=== PATIENT | female | born 1985 | race Caucasian/White ===

== ENCOUNTER 2022-10-15 11:21 | Outpatient (CLI) | payer BC, OTHER, SELFPAY ==
--- NOTE | 2022-10-15 11:30 | ECG_ITS ---
Measurements Intervals [place] Rate: 78 P: 44 VT: 168 QRS: 17 QRSD: 87 T: -8 QT: 390 QTc: 444 Interpretive Statements SINUS RHYTHM INCOMPLETE RIGHT BUNDLE BRANCH BLOCK NONSPECIFIC ST AND T-WAVE ABNORMALITY NO PREVIOUS ECG AVAILABLE FOR COMPARISON Electronically Signed On 10-15-2022 15:57:44 CDT by Varinder Donaldson M.D.
[2022-10-15 11:57] LABS: Hematocrit 36.9 % (37.0-47.0); Hemoglobin 12.8 g/dL (12.0-15.0); Mean Corpuscular HGB Conc 34.7 g/dl (32-36); Mean Corpuscular Hemoglobin 28.5 pg (26-34); Mean Corpuscular Volume 82.2 fl (80-100); Mean Platelet Volume 9.3 fl (7.4-10.4); Platelet Count Result 405 k/mm3 (150-375); Red Blood Count 4.49 M/mm3 (4.2-5.4); Red Cell Distribution Width 12.2 % (11.5-14.5); White Blood Count 16.8 K/mm3 (4.5-10.0)
[2022-10-15 12:09] LABS: Prothrombin Time 12.6 Seconds (11.1-14.7)
[2022-10-15 12:10] LABS: Partial Thromboplastin Time 23.7 SECONDS (22.3-36.8)
== END 2022-10-15 11:22 | disposition home or self-care (01) ==
LOC: ANHSURGERY 11:25
PROVIDERS: Anesthesiology; PCP Family Medicine Sports Medicine; Visit Provider Obstetrics & Gynecology
DX: N81.4 Uterovaginal prolapse, unspecified (principal); I10 Essential (primary) hypertension; D68.00 Von Willebrand disease, unspecified
CPT/HCPCS: 36415; 85027; 85610; 85730; 86850; 86900; 86901; 93005

== ENCOUNTER 2022-10-16 00:11 | Day surgery (SDC) | payer BC, OTHER, SELFPAY ==
[2022-10-08 13:09] VITALS: BMI 32.5
--- NOTE | 2022-10-08 13:17 | PC.NURSE ---
Report to the Outpatient Waiting Room, entrance under the green pavilion located off [facility], at time 7:30 on date 10/16/22. Planned Procedure Time: 9:30. Time changes happen often and if your time is changed the preop area will call you the afternoon before. - You and your visitor will be asked to self-screen and do not enter if you have any COVID symptoms. - A mask is optional within the hospital at this time. Patients may have clear liquids (water, carbonated beverages, clear teas, apple juice) until 3 hours prior to surgery (6:30) with a maximum of 20 ounces. - No food from midnight until time of surgery Take the following medications with a SIP of water the morning of surgery: NONE DO NOT STOP ANY OF YOUR OTHER PRESCRIPTION MEDICATIONS PRIOR TO SURGERY EXCEPT THE FOLLOWING Medications to discontinue per physician: N/A Date to take last dose: N/A Please no make-up, nail haitian, hairspray, perfume, deodorant, or body powder the day of surgery. No jewelry (including any body piercings) or valuables the day of surgery, leave them at home. Please take a shower or bath the night before, or the morning of, surgery with an antibacterial soap. Wear comfortable, loose fitting clothing. - Jewelry must be removed prior to entering the operating room. Rings and piercings that are not removed may be cut off. - The hospital will not accept responsibility for valuables. - Please leave all valuables, including medications, at home the day of surgery. If you are going home after surgery, a licensed bus van driver must drive you home. - NO public transportation without another adult if you receive anesthesia. - We recommend that an adult stay with you for 24 hours following discharge. - We also recommend that you do not drive, make important decision, drink alcoholic beverages, or take any drugs that were not prescribed by your health care provider for at least 24 hours after your discharge time. Follow any additional instructions given to you from your surgeon. If you or anyone in your household have experienced Covid symptoms in the past week, please notify your surgeon or the nurse liaison at the phone number below for possible testing. Telephone instructions given to PT - STACI JJ and asked if any additional questions and then verbalized understanding. Patient advised to call surgeon office or pre surgery nurse liaison [phone] if any additional questions.
--- NOTE | 2022-10-15 09:11 | WPDANESEPPF ---
Anes - Initial Pre Proc Eval Procedure: Operation Date: 10/16/22 09:30 Proposed Procedures p Robotic Assisted Total Laparoscopic Hysterectomy with Bilateral Salpingectomy - Isaak Carbone MD Date/Time: 10/15/22 09:11 Surgeon: Isaak Carbone MD Pre Op Diagnosis: Uterine Prolapse Patient Data Age: 36 Gender: F Height: 1.63 m Weight: 86.2 kg Allergies Allergy/AdvReac Type Severity Reaction Status Date / Time latex Allergy Intermediate Hives Verified 10/16/22 08:22 nitrofurantoin Allergy Intermediate Hives Verified 10/16/22 08:22 [From Macrobid] povidone-iodine Allergy Intermediate Hives Verified 10/16/22 08:22 [From Betadine] adhesive Allergy Mild Hives Verified 10/16/22 08:22 aspirin Allergy Mild HAVE A Verified 10/16/22 08:22 BLEEDING DISORDER, UNABLE TO TAKE ibuprofen Allergy Mild HAVE A Verified 10/16/22 08:22 BLEEDING DISORDER, UNABLE TO TAKE morphine Allergy Mild HIVES Verified 10/16/22 08:22 soap [From Betadine] Allergy Hives Verified 10/16/22 08:22 Home Medications Medication Instructions Recorded Confirmed Type drospirenone 3 mg-ethinyl 1 tablet PO HS 10/08/22 10/08/22 History estradiol 0.02 mg tablet (JESSICA (28)) losartan 50 mg tablet 50 mg PO DAILY 10/08/22 10/08/22 History Patient hx anesthesia problems: post op nausea/vomiting Family hx anesthesia problems: none Results Review: All pre-operative results and documents have been reviewed as part of the pre-operative evaluation. [facility] Past Medical History Medical History Abnormal Pap smear of cervix 09/17/2018 + hpv 08/05/2016 lgsil+hpv 07/02/2015 LGSIL +HPV 09/02/2011 LGSIL 02/27/2011 ASCUS HPV negative 08/21/2010 LGSIL 01/31/2010 LGSIL 06/11/2009 LGSIL Anxiety Asthma Depression Ectopic 03/02/2017 lt fallopian tube removed Encounter for IUD insertion 11/23/19 Mirena insertion 02/19/21 Mirena removal Fibromyalgia possible Hypertension Pneumonia PONV (postoperative nausea and vomiting) SVT (supraventricular tachycardia) Von Willebrand disease Surgical History Surgical History H/O cardiac radiofrequency ablation H/O LEEP 10/09/16 HGSIL persistent LGSIL AYDEE II--IUD removal at same time History of cholecystectomy 03/10/18 History of colposcopy with cervical biopsy 09/24/16 benign 07/25/15 colpo LGSIL AYDEE 07/26/2009 colpo- LGSIL AYDEE 1 02/18/2010 colpo- LGSIL AYDEE 1-2 History of gynecologic surgery 02/11/10 vulvar bx--molluscum History of heart surgery 2001 heart catheterization--syncope 2011 heart catheterization History of hysteroscopy 10/07/18 hscope d&c/dx lscope/lscope chromopertubation--pelvic pain, irregular vaginal bleedin History of laparoscopic cholecystectomy History of left knee surgery 05/16/18 08/15/15 lt knee reconstructive surgery History of rotator cuff surgery rt rotator cuff/shaving of clavicle bone History of salpingectomy laparoscopic Family History Family History Mother Diabetes mellitus mother Ovarian cancer mother Sibling Diabetes mellitus brother Grandparent Diabetes mellitus maternal grandmother maternal grandfather Ovarian cancer maternal grandmother Social History Social History Smoking status: Never smoker Tobacco type: e-cigarettes/vaping Second hand tobacco smoke exposure: No Alcohol intake: current Alcohol use details: RARE Substance use: never Substance use type: does not use Living arrangements: with family Additional living arrangements comments: Occupation/Education: occupation 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
[2022-10-16] VITALS (11 sets, daily range): BP systolic 122–150; BP diastolic 77–97; PULSE 51–79; RESP 12–20; TEMP 36.4–37; O2SAT 95–100
--- NOTE | 2022-10-16 07:27 | PM.IMHP ---
H&P: HPI History of Present Illness Date/Time: 10/16/22 07:27 36-year-old 6 para 3 0 3 3 female presents with complaints of pelvic pressure and fullness in feeling as though her uterus is falling out . This pressure and discomfort has increased over the past 6-12 months and has been long-standing problem for her. She is currently on control pills and not have any bleeding issues. We have discussed nonsurgical measures but she desires definitive treatment. Patient also has von Willebrand's disease and has seen her pool player for management of this around her surgery. She will (and has with her) Stimate 2 nasal sprays 2hours after the procedure. Chief Complaint: Uterine prolapse with Review of Systems Review of Systems: All systems reviewed & are unremarkable except as noted in HPI and below PMFSH Past Medical History Medical History Abnormal Pap smear of cervix 09/17/2018 + hpv 08/05/2016 lgsil+hpv 07/02/2015 LGSIL +HPV 09/02/2011 LGSIL 02/27/2011 ASCUS HPV negative 08/21/2010 LGSIL 01/31/2010 LGSIL 06/11/2009 LGSIL Anxiety Asthma Depression Ectopic 03/02/2017 lt fallopian tube removed Encounter for IUD insertion 11/23/19 Mirena insertion 02/19/21 Mirena removal Fibromyalgia possible Hypertension Pneumonia PONV (postoperative nausea and vomiting) SVT (supraventricular tachycardia) Von Willebrand disease Surgical History Surgical History H/O cardiac radiofrequency ablation H/O LEEP 10/09/16 HGSIL persistent LGSIL AYDEE II--IUD removal at same time History of cholecystectomy 03/10/18 History of colposcopy with cervical biopsy 09/24/16 benign 07/25/15 colpo LGSIL AYDEE 07/26/2009 colpo- LGSIL AYDEE 1 02/18/2010 colpo- LGSIL AYDEE 1-2 History of gynecologic surgery 02/11/10 vulvar bx--molluscum History of heart surgery 2001 heart catheterization--syncope 2011 heart catheterization History of hysteroscopy 10/07/18 hscope d&c/dx lscope/lscope chromopertubation--pelvic pain, irregular vaginal bleedin History of laparoscopic cholecystectomy History of left knee surgery 05/16/18 08/15/15 lt knee reconstructive surgery History of rotator cuff surgery rt rotator cuff/shaving of clavicle bone History of salpingectomy laparoscopic Family History Family History Mother Diabetes mellitus mother Ovarian cancer mother Sibling Diabetes mellitus brother Grandparent Diabetes mellitus maternal grandmother maternal grandfather Ovarian cancer maternal grandmother Social History Social History Smoking status: Never smoker Tobacco type: e-cigarettes/vaping Second hand tobacco smoke exposure: No Alcohol intake: current Alcohol use details: RARE Substance use: never Substance use type: does not use Living arrangements: with family Additional living arrangements comments: Occupation/Education: occupation 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[employer] Gender identity (if verbalized by the patient): Female Sexual Orientation (if Verbalized by the Patient): Straight or Heterosexual Spiritual care concerns: No Meds Home Medications and Allergies Home Medications Medication Instructions Recorded Confirmed Type drospirenone 3 mg-ethinyl 1 tablet PO HS 10/08/22 10/08/22 History estradiol 0.02 mg tablet (JESSICA (28)) losartan 50 mg tablet 50 mg PO DAILY 10/08/22 10/08/22 History Allergies Allergy/AdvReac Type Severity Reaction Status Date / Time latex Allergy Intermediate Hives Verified 10/08/22 13:08 nitrofurantoin Allergy Intermediate Hives Verified 10/08/22 13:08 [From Macrobid] povidone-iodine Allergy Intermediate Hives Verified 10/08/22 13:08 [From B
--- NOTE | 2022-10-16 07:31 | WPDHPUPDATE1 ---
History and Physical Update Update Date/Time: 10/16/22 07:31 History and Physical has been reviewed, including an updated exam of the patient. There are NO changes in the patient's condition. Risks, benefits, and alternatives have been discussed and questions answered. Patient agrees to proceed with procedure.
[2022-10-16] MEDS: LACTATED RINGERS 1,000 ML 30 ML IV CONT ×2 (08:10→10:30)
[2022-10-16] MEDS: ACETAMINOPHEN 500 MG TABLET 1000 MG PO (08:10)
--- NOTE | 2022-10-16 08:15 | PCCCNOTE ---
Called to Dr. Carbnoe's office spoke w/ Yvan, per review of the chart patient has BC as primary which does not require PA for surgery and her secondary is RONALDO Stratton and does not require prior auth.
[2022-10-16] MEDS: SCOPOLAMINE 1.5 MG PATCH TRANSDERM (08:51)
[2022-10-16] MEDS: ceFAZolin 2 GM/D5W 50 ML 2 GM/50 ML BAG IVPB (09:10)
--- NOTE | 2022-10-16 10:19 | W.PM.PROC2 ---
Procedure Note - Detailed Date of Procedure 10/16/22 Pre-op Diagnosis 1. uterine Prolapse 2. Prior left salpingectomy Post-op Diagnosis Same Procedure Performed 1. Robotic assisted total laparoscopic hysterectomy 2. Right salpingectomy Surgeon Isaak Carbone MD Anesthesia General Findings 1. Uterus prolapsed to the introitus 2. Left fallopian tube surgically absent 3. Bilateral ovaries without abnormality Description of Procedure Patient prepped and draped manner for this procedure. Cervical instruments were placed for uterine mobility throughout the case. Abdominal trocar sites were marked and trocars were placed under direct visualization and then attached to the de Khris system. Instruments were placed under direct visualization the surgeon moved to the console. Right mesosalpinx was cauterized and cut and the right tube was removed. Round ligament bilaterally was cauterized and cut and the bladder flap was developed without difficulty. The utero-ovarian ligaments bilaterally were cauterized and cut. Posterior leaf the broad ligament was also incised to isolate the uterine vessels. These were cauterized and cut without difficulty. The anterior colpotomy incision was then made and this was carried circumferentially around the cervix to release the cervix from the vagina. Cervix was delivered into the vaginal area and then the incision was approximated using V lock suture from the right angle to the midline and the left angle to midline with good approximation hemostasis noted. Irrigation was undertaken there was no bleeding. Tish was placed empirically over all the surgical sites. Patient was then sent to the recovery room in stable condition, after the trocar sites were approximated using 4-0 Monocryl. Estimated Blood Loss 50 Drains No Packing No Pathology Yes Complications No immediate complications Condition Stable Disposition PACU [facility] Billing Surgery - Charge Forward: Surgery Billing
[2022-10-16] MEDS: fentaNYL CITRATE INJ (*CRX) 100 MCG/2 ML VIAL 25 MCG IV PUSH ×9 (10:42→11:35)
[2022-10-16] MEDS: HYDROmorphone HCL INJ (*CRX) 1 MG/ML SYR 0.5 MG IV PUSH ×4 (11:20→11:40)
--- NOTE | 2022-10-16 11:55 | ADMGEN ---
This patient, Izabela Yadav, was admitted to OB 2nd Floor Room 276-00. Patient/family oriented to hospital policies and general routines including ID bracelet, bed and alarms, visiting hours, pain management, procedures, bathroom and other care routines, personal items, smoking policy, room service/diet, and visiting hours. Information on how to activate the Rapid Response Team has been discussed. Patient/Family are encouraged to report perceived risks to care and to ask questions if they do not understand what they are told or what they should do.
[2022-10-16] MEDS: DEXTROSE 5%/0.45% SOD CHL 1,000 ML 125 ML IV CONT (12:33)
[2022-10-16] MEDS: HYDROcodone/acetaminophen (*CRX) 10-325 MG TABLET 1 TAB PO ×2 (16:09→19:59)
[2022-10-17 00:06] VITALS: BP 135/88; PULSE 60; RESP 18; TEMP 37.1; O2SAT 97
[2022-10-17] MEDS: HYDROcodone/acetaminophen (*CRX) 5-325 MG TABLET 1 TAB PO ×2 (00:12→09:30)
[2022-10-17] MEDS: HYDROcodone/acetaminophen (*CRX) 10-325 MG TABLET 1 TAB PO (05:03)
[2022-10-17 05:06] VITALS: BP 122/77; PULSE 80; RESP 18; TEMP 37; O2SAT 98
[2022-10-17 05:57] LABS: Basophils Percent Auto 0.2 % (0.2-1.2); Eosinophils Absolute Auto 0.1 K/mm3 (0-0.3); Eosinophils Percent Auto 0.6 % (0-4.4); Hematocrit 36.1 % (37.0-47.0); Hemoglobin 12.1 g/dL (12.0-15.0); Immature Granulocyte Absolute 0.05 K/mm3 (0.00-0.031); Immature Granulocyte Percent A 0.4 % (0-0.5); Lymphocytes Absolute Auto 4.28 K/mm3 (0.9-3.2); Lymphocytes Percent Auto 34.2 % (18.3-44.2); Mean Corpuscular HGB Conc 33.5 g/dl (32-36); Mean Corpuscular Hemoglobin 29.6 pg (26-34); Mean Corpuscular Volume 88.3 fl (80-100); Mean Platelet Volume 9.5 fl (7.4-10.4); Monocytes Absolute Auto 0.7 K/mm3 (0.1-0.6); Monocytes Percent Auto 5.7 % (2.6-8.5); Neutrophils Absolute Auto 7.4 K/mm3 (1.3-6.7); Neutrophils Percent Auto 58.9 % (45.5-73.1); Platelet Count Result 375 k/mm3 (150-375); Red Blood Count 4.09 M/mm3 (4.2-5.4); Red Cell Distribution Width 12.8 % (11.5-14.5); White Blood Count 12.5 K/mm3 (4.5-10.0)
[2022-10-17 07:45] VITALS: BP 113/67; PULSE 68; RESP 18; TEMP 36.4; O2SAT 99
[2022-10-17] MEDS: LOSARTAN POTASSIUM 50 MG TABLET PO (09:29)
[2022-10-17 09:30] VITALS: PULSE 68; RESP 16; O2SAT 99
--- NOTE | 2022-10-17 10:08 | P.PNAN_ITS ---
Anes - Prog Note Post-Op Date/Time: 10/17/22 10:08 Cardiovascular status: normal Respiratory status: normal Airway patency: baseline Mental status: baseline Post-Op hydration status: normal Vital Signs: Last Vital Signs Temp 36.4 C L 10/17/22 07:45 Pulse 68 10/17/22 07:45 Resp 18 10/17/22 07:45 BP 113/67 10/17/22 07:45 Pulse Ox 99 10/17/22 07:45 O2 Del Method Room Air 10/16/22 16:00 O2 Flow Rate 6 10/16/22 10:30 Pain Score (VAS): 07/08 I/O: Intake & Output 10/16/22 10/17/22 10/17/22 23:59 07:59 15:59 Intake Total 1096 Output Total 600 Balance 496 Laboratory Tests 10/17/22 05:24 10/17/22 05:24 WBC 12.5 H RBC 4.09 L Hgb 12.1 Hct 36.1 L MCV 88.3 D MCH 29.6 MCHC 33.5 RDW 12.8 Plt Count 375 MPV 9.5 Immature Gran % (Auto) 0.4 Neut % (Auto) 58.9 Lymph % (Auto) 34.2 [place] % (Auto) 5.7 Eos % (Auto) 0.6 Baso % (Auto) 0.2 Lymph # (Auto) 4.28 H [place] # (Auto) 0.7 H Eos # (Auto) 0.1 Baso # (Auto) 0.0 Abs Immat Gran (auto) 0.05 H Absolute Neuts (auto) 7.4 H Absolute Nucleated RBC 0.0 Nucleated RBC % 0.0 Post-procedural complaints: none Patient Feedback: Patient satisfied with anesthetic care.
== END 2022-10-17 08:04 | disposition home or self-care (01) ==
LOC: ANHSURGERY 10:59 → ANHOB2 10-17 08:06
PROVIDERS: PCP Family Medicine Sports Medicine; Visit Provider Obstetrics & Gynecology
PROC: (CPT 58571; principal; 2022-10-16 09:30)
DX: N81.4 Uterovaginal prolapse, unspecified (principal); R87.612 Low grade squamous intraepithelial lesion on cytologic smear of cervix (LGSIL); D68.00 Von Willebrand disease, unspecified; I10 Essential (primary) hypertension; E66.9 Obesity, unspecified; Z68.32 Body mass index [BMI] 32.0-32.9, adult
CPT/HCPCS: 58571; S2900; 36415; 85025; 88307; A9270; J0690; J1100; J1170; J2250; J2405; J2704; J2710; J3010; J7030; J7120

== ENCOUNTER 2023-02-12 13:44 | Outpatient (CLI) | payer OTHER, SELFPAY ==
--- NOTE | ~2023-02-12 | CT_ITS ---
EXAMINATION: CT abdomen pelvis wo/w con DATE: 02/12/2023 14:09 INDICATION: Pelvic and perineal pain TECHNIQUE: Computed tomography (CT) of the abdomen and pelvis was performed without intravenous contr ast. CT of the abdomen and pelvis was then performed with a total of 100 mL Omnipaque 350 intravenous contrast. The dose-length product (DLP) was 1347.34 mGy-cm. Automated exposure control and iterative reconstruction technique were employed. COMPARISON: None FINDINGS: The lung bases are clear. The heart size is normal. There are changes of cholecystectomy. T he liver, spleen, pancreas, and adrenal glands are normal. The kidneys are unremarkable. No stones ar e identified in the kidneys, ureters, or bladder. No hydronephrosis or hydroureter. No pathologically enlarged abdominal or pelvic lymph nodes are identified. No free intraperitoneal gas or evidence of bowel obstruction. The appendix is normal. IMPRESSION: 1. No CT correlate for the patient's symptoms. Reviewed, dictated and finalized at location L.
== END 2023-02-12 13:45 | disposition home or self-care (01) ==
PROVIDERS: PCP Family Medicine Sports Medicine; Visit Provider Obstetrics & Gynecology
DX: R10.2 Pelvic and perineal pain (principal)
CPT/HCPCS: 74178; Q9967